=== PATIENT | male | born 1995 | race Caucasian/White ===

== ENCOUNTER 2021-10-30 11:55 | Emergency (ER) | payer OTHER ==
[2021-10-30] MEDS ORDERED: Sodium Chloride 0.9% 10 ML Syringe FLUSH PRN (13:01)
[2021-10-30] MEDS ORDERED: Pantoprazole 40 MG Vial IVPUSH STA (13:01)
== END 2021-10-30 13:10 | disposition home or self-care (01) ==
LOC: FB.ED 11:55
DX: T23.202A Burn of second degree of left hand, unspecified site, initial encounter (principal); W86.8XXA Exposure to other electric current, initial encounter
CPT/HCPCS: 99283